=== PATIENT | female | born 1945 | race African-American/Black ===

== ENCOUNTER → 2024-02-04 07:32 | Outpatient (REF) | payer MEDICARE, SELFPAY ==
[2024-02-04 08:58] LABS: Blood Urea Nitrogen 17 mg/dl (7-17); Calcium 9.9 mg/dl (8.4-10.2); Carbon Dioxide 26 mmol/L (22-30); Chloride 102 mmol/L (98-107); Creatine Phosphokinase 53 U/L (30-135); Glucose 118 mg/dl (70-99); Sodium 134 mmol/L (135-145); Total Cholesterol 188 mg/dl (50-199); Triglyceride 115 mg/dl (10-149); Very Low Density Lipoprotein 23 mg/dl (0-30); eGFR 58.39
[2024-02-04 09:02] LABS: HDL Cholesterol 90 mg/dl; LDL Cholesterol, Calculated 75 mg/dl
== END ==
LOC: REG 07:32
PROVIDERS: ATTENDING PHYSICIAN Internal Medicine Rheumatology; FAMILY PHYSICIAN Family Medicine; REFERRING PHYSICIAN Internal Medicine Cardiovascular Disease
DX: E78.5 Hyperlipidemia, unspecified (principal); E87.1 Hypo-osmolality and hyponatremia; M65.311 Trigger thumb, right thumb; Z51.81 Encounter for therapeutic drug level monitoring
CPT/HCPCS: 36415; 80048; 80061; 82550